=== PATIENT | male | born 1945 | race Caucasian/White ===

== ENCOUNTER 2016-11-05 07:41 | Day surgery (SDC) | payer MEDICARE, OTHER ==
[~2016-11-05] VITALS: Ht 170.2 cm; Wt 74.4 kg
[~2016-11-05 07:41] MED LIST: ASPIRIN325 MG PO; CENTRUM SILVER1 EAC3 PO; COZAAR25 MG PO; FLONASE ALLERG9.9 ML; LEVITRA20 MG PO; LUTEIN-ZEAXANT1 EACH PO; RAPAFLO4 MG PO; SYNTHROID175 MCG PO; VITAMIN D-32000 UNIT PO
--- NOTE | 2016-11-05 08:01 | NUR ---
11/05/16 0801 Mitzy Butts REPORT FROM ENDO [facility].
--- NOTE | 2016-11-05 12:34 | NUR ---
PT MENTIONED THAT HE HAS BEEN WAITING FOR ADMITTING TO PROCESSS HIM. STAFF FEELING RUSHED TO TRY AND STAY ON SCHEDULE. QUICKLY CONNECTED WITH PT, WILL FOLLOW NEEDED
--- NOTE | 2016-11-07 19:54 | OR ---
[facility] [address], [place] [address] Signed DATE OF PROCEDURE: 11/05/16 PREOPERATIVE DIAGNOSES Personal history of colonic polyps (2010). Diverticulosis. Internal hemorrhoids. POSTOPERATIVE DIAGNOSES A 4 mm polyps x2, proximal right colon. Moderate pandiverticulosis. Ladimto-su-lgjxjkwk internal hemorrhoids. PROCEDURE Colonoscopy with hot biopsy. ESTIMATED BLOOD LOSS None. INDICATIONS Sai is a 71-year-old gentleman who has a personal history of colonic polyps removed in 2010. In 2001, his colonoscopy was negative. He is also known to have diverticulosis and internal hemorrhoids. 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 He also has both knees replaced. He said he has been doing well. He does take a baby aspirin every day. He has no lower GI complaints. There is no family history of colon cancer or polyps. I met with Sai in the office and I gave him a pamphlet on colonoscopy. We reviewed the nature of the test along with the risks including, but not limited to gas bloating, crampy abdominal pain, bleeding, perforation requiring surgery, and missed diagnosis. We also discussed the need for IV conscious sedation. He had expressed understanding and wished to proceed. PROCEDURE NOTE Sai was taken into our endoscopy suite and placed in a left lateral decubitus position. He was given a preoperative antibiotic. He was given divided doses of 7 mg of Versed and 150 mcg of Fentanyl for the case. A digital rectal exam was performed and this was unremarkable. The adult colonoscope was introduced and advanced all around into the cecum under direct visualization of camera without difficulty. His prep was good. He had a couple areas of liquid particulate stool matter. Most of that was irrigated and suctioned out. The scope was slowly withdrawn. We saw just a few diverticula in the right colon. He also had 2 tiny polyps in the proximal right colon, which we removed with a hot biopsy forceps. We did see the diverticula on the left and sigmoid colon as well. They are moderate in size, moderate in numbers, and scattered about. The rectum was unremarkable. Upon retroflextion of scope, he has some miniamal to moderate Electronically Signed By: LAMONTE JUAREZ MD 11/07/161953 PATIENT NAME: SAI MULLER OPERATIVE REPORT DATE OF : 43 PHYSICIAN: LAMONTE JUAREZ MD REPORT #: [id number] REPORT IS CONFIDENTIAL AND NOT TO BE RELEASED WITHOUT AUTHORIZATION [facility] [address] [place] [id number] Signed internal hemorrhoid columns. After this, the gas was suctioned out and the colonoscope removed. Sai tolerated this procedure quite well. RECOMMENDATIONS Sai can follow up my office in 7 to 14 days to review his results. MD ROBINSON Nova/Yumiko /[id number] cc: Dr. Prabhu Villafana MD Electronically Signed By: LAMONTE JUAREZ MD 11/07/161953 PATIENT NAME: RENZOSAI Erick OPERATIVE REPORT DATE OF : 43 PHYSICIAN: LAMONTE JUAREZ MD REPORT #: [id number] REPORT IS CONFIDENTIAL AND NOT TO BE RELEASED WITHOUT AUTHORIZATION
== END 2016-11-05 09:36 | disposition home or self-care (01) ==
LOC: OPS 07:41 → DS 07:41 → OPS 08:15 → DS 10:30 → OPS 10:30
PROVIDERS: Colon & Rectal Surgery
PROC: 0DBK8ZX Excision of Ascending Colon, Via Natural or Artificial Opening Endoscopic, Diagnostic (ICD-10-PCS; principal; 2016-11-05 08:15)
DX: D12.2 Benign neoplasm of ascending colon (principal); K57.30 Diverticulosis of large intestine without perforation or abscess without bleeding; K64.8 Other hemorrhoids; I35.0 Nonrheumatic aortic (valve) stenosis; I10 Essential (primary) hypertension; K21.9 Gastro-esophageal reflux disease without esophagitis; N40.0 Benign prostatic hyperplasia without lower urinary tract symptoms; E78.5 Hyperlipidemia, unspecified; E03.9 Hypothyroidism, unspecified; M19.90 Unspecified osteoarthritis, unspecified site; Z90.3 Acquired absence of stomach [part of]; Z86.010 Personal history of colon polyps; Z86.19 Personal history of other infectious and parasitic diseases; Z98.890 Other specified postprocedural states; Z98.52 Vasectomy status; Z96.653 Presence of artificial knee joint, bilateral; Z87.891 Personal history of nicotine dependence; Z88.5 Allergy status to narcotic agent; Z79.899 Other long term (current) drug therapy
CPT/HCPCS: 88305; 99152; 99153; J2250; J3010; J7120